=== PATIENT | female | born 1940 | race Caucasian/White ===

== ENCOUNTER 2017-02-10 11:07 | Emergency (ER) | payer OTHER, MEDICAID ==
[~2017-02-10 11:07] MED LIST: AMLODIPINE5 MG PO; APR10 PO; BUPROPION100 MG PO; CARL PO; COL100 PO; DIO160 PO; DIPHENHYDRAMINE25 M4 PO; FERROUS SULFATE65 MG PO; FLA500 PO; FLUTICASON0.05 MG/Ac; FOL1 PO; HYDROMORPHONE2 MG PO; IPRATROPIUM BROM3 ML HHN; LAC30L PO; MAG PO; METFORMIN ER500 M1 PO; METFORMIN500 MG PO; METOPROLOL100 MG PO; NITROFURANTOIN100 M1 PO; PAX20 PO; PHENAZOPYRIDIN100 M1 PO; PLA75 PO; PRE10 PO; PRI20 PO; ROB500 PO; TRAMADOL HCL50 M PO; VALSARTAN AND H1 TA1 PO; XAN25 PO; ZOFRAN4 M1 PO; [UNRECOGNIZED DRUG - CODE] PO
[2017-02-10 11:31] VITALS: BP 148/83
== END 2017-02-10 13:22 | disposition home or self-care (01) ==
LOC: ED 11:07
DX: N39.0 Urinary tract infection, site not specified (principal); I10 Essential (primary) hypertension; E11.9 Type 2 diabetes mellitus without complications; J45.901 Unspecified asthma with (acute) exacerbation; Z79.84 Long term (current) use of oral hypoglycemic drugs

== ENCOUNTER 2017-06-04 18:37 | Emergency (ER) | payer OTHER, MEDICAID ==
[2017-06-04 20:25] VITALS: BP 150/96
== END 2017-06-04 20:25 | disposition home or self-care (01) ==
LOC: ED 18:37
DX: S43.402A Unspecified sprain of left shoulder joint, initial encounter (principal); S09.90XA Unspecified injury of head, initial encounter; I10 Essential (primary) hypertension; E11.9 Type 2 diabetes mellitus without complications; Z79.84 Long term (current) use of oral hypoglycemic drugs; Z88.0 Allergy status to penicillin; W01.0XXA Fall on same level from slipping, tripping and stumbling without subsequent striking against object, initial encounter; Y93.89 Activity, other specified; Y92.89 Other specified places as the place of occurrence of the external cause; Y99.8 Other external cause status

== ENCOUNTER 2018-01-14 13:05 | Emergency (ER) | payer OTHER ==
[~2018-01-14] VITALS: Ht 147.3 cm; Wt 76.7 kg
[2018-01-14 13:07] VITALS: Ht 147.3 cm; Wt 76.7 kg
[2018-01-14 14:01] LABS: BASOPHIL % 0.2 % (0-2)
[2018-01-14 14:02] LABS: PLATELET COUNT 409 x10^3mcL (130-400); RED CELL DISTRIBUTION WIDTH 14.9 % (11.5-14.5)
[2018-01-14 14:15] LABS: CALCIUM 9.8 mg/dL (8.5-10.1); CARBON DIOXIDE 29.2 mmol/L (21-32); CHLORIDE SERUM 99 mmol/L (98-107); CREATININE SERUM 0.6 mg/dL (0.6-1.0); GLUCOSE SERUM 103 mg/dL (74-106); POTASSIUM SERUM 3.9 mmol/L (3.5-5.1); SODIUM SERUM 135 mmol/L (136-145)
[2018-01-14 14:19] LABS: ALBUMIN 3.4 g/dL (3.4-5.0); ALKALINE PHOSPHATASE 111 U/L (46-116); ALT/SGPT 27 U/L (14-59); AST/SGOT 15 U/L (15-37); BILIRUBIN TOTAL 0.2 mg/dL (0.20-1.00); TOTAL PROTEIN, SERUM 7.7 g/dL (6.4-8.2)
[2018-01-14 14:29] LABS: FREE T4 1.07 ng/dL (0.76-1.46); FREE THYROXINE INDEX 3.2 ug/dL (1.4-4.5); T4(THYROXINE) 9.1 ug/dL (4.7-13.3)
[2018-01-14 14:38] LABS: T3 TOTAL 1.16 ng/mL
[2018-01-14 15:06] VITALS: BP 137/72
== END 2018-01-14 15:11 | disposition home or self-care (01) ==
LOC: ED 13:05
PROVIDERS: Emergency Medicine
DX: R60.0 Localized edema (principal); R06.00 Dyspnea, unspecified; R06.01 Orthopnea; J45.909 Unspecified asthma, uncomplicated; I10 Essential (primary) hypertension; E11.9 Type 2 diabetes mellitus without complications; Z88.0 Allergy status to penicillin
CPT/HCPCS: 36415; 83880; 84439; Q0092

== ENCOUNTER 2018-03-03 09:05 | Inpatient (IN) | payer OTHER ==
[~2018-03-03] VITALS: Ht 147.3 cm; Wt 81.2 kg
[2018-03-03 10:25] LABS: BASOPHIL % 0.4 % (0-2)
[2018-03-03 10:27] LABS: PLATELET COUNT 501 x10^3mcL (130-400); RED CELL DISTRIBUTION WIDTH 14.9 % (11.5-14.5)
[2018-03-03 10:40] LABS: ALKALINE PHOSPHATASE 90 U/L (46-116); ALT/SGPT 29 U/L (14-59); AST/SGOT 20 U/L (15-37); BILIRUBIN TOTAL 0.31 mg/dL (0.20-1.00); CALCIUM 9.3 mg/dL (8.5-10.1); CARBON DIOXIDE 25.9 mmol/L (21-32); CHLORIDE SERUM 89 mmol/L (98-107); CHOLESTEROL 135 mg/dL (<200); CREATININE SERUM 0.7 mg/dL (0.6-1.0); GLUCOSE SERUM 168 mg/dL (74-106); HDL CHOLESTEROL 46 mg/dL (40-60); POTASSIUM SERUM 4.1 mmol/L (3.5-5.1); TOTAL PROTEIN, SERUM 6.8 g/dL (6.4-8.2)
[2018-03-03 10:52] LABS: ALBUMIN 2.7 g/dL (3.4-5.0); SODIUM SERUM 120 mmol/L (136-145)
[2018-03-03] MEDS ORDERED: METOPROLOL SUC100 M2 PO (12:30)
[2018-03-03] MEDS ORDERED: POTASSIUM CHLO10 MEQ PO (12:30)
[2018-03-03] MEDS ORDERED: METFORMIN HYDR500 M1 PO (12:31)
[2018-03-03] MEDS ORDERED: FUROSEMIDE40 MG PO (12:31)
[2018-03-03] MEDS ORDERED: GOOD SENSE OMEP20 MG PO (12:31)
[2018-03-03] MEDS ORDERED: HYDRALAZINE HCL25 MG PO (12:31)
[2018-03-03] MEDS ORDERED: AMLODIPINE BESY10 M2 PO (12:32)
[2018-03-03 15:28] VITALS: BP 160/68
[2018-03-03 15:33] VITALS: Ht 147.3 cm; Wt 81.2 kg
[2018-03-03] MEDS ORDERED: LOSARTAN POTAS100 M1 PO (16:16)
[2018-03-03 18:28] LABS: CREATININE UR 11.9 mg/dL
[2018-03-03 20:36] VITALS: BP 131/63
[2018-03-04 05:50] VITALS: BP 128/54
[2018-03-04 06:06] LABS: BASOPHIL % 0.3 % (0-2)
[2018-03-04 06:30] LABS: PLATELET COUNT 523 x10^3mcL (130-400); RED CELL DISTRIBUTION WIDTH 15.2 % (11.5-14.5)
[2018-03-04 06:39] LABS: ALBUMIN 2.9 g/dL (3.4-5.0); ALKALINE PHOSPHATASE 87 U/L (46-116); ALT/SGPT 27 U/L (14-59); AST/SGOT 15 U/L (15-37); BILIRUBIN TOTAL 0.24 mg/dL (0.20-1.00); CALCIUM 10.1 mg/dL (8.5-10.1); CARBON DIOXIDE 25.6 mmol/L (21-32); CHLORIDE SERUM 94 mmol/L (98-107); CREATININE SERUM 0.7 mg/dL (0.6-1.0); GLUCOSE SERUM 173 mg/dL (74-106); IRON 22 ug/dL (50-170); MAGNESIUM 1.6 mg/dL (1.8-2.4); POTASSIUM SERUM 3.8 mmol/L (3.5-5.1); SODIUM SERUM 128 mmol/L (136-145); TOTAL IRON BINDING CAPACITY 209 ug/dL (250-450); TOTAL PROTEIN, SERUM 7.4 g/dL (6.4-8.2); URIC ACID 5.5 mg/dL (2.6-6.0)
[2018-03-04 08:32] VITALS: BP 119/61
[2018-03-04 16:14] LABS: CALCIUM 8.5 mg/dL (8.5-10.1); CARBON DIOXIDE 27.8 mmol/L (21-32); CHLORIDE SERUM 98 mmol/L (98-107); CREATININE SERUM 0.8 mg/dL (0.6-1.0); GLUCOSE SERUM 203 mg/dL (74-106); POTASSIUM SERUM 3.6 mmol/L (3.5-5.1); SODIUM SERUM 134 mmol/L (136-145)
[2018-03-04 17:26] LABS: UA SPECIFIC GRAVITY 1.015 (1.005-1.035); microscopic required? YES; urine erythrocyte NEGATIVE (NEGATIVE)
[2018-03-04 17:30] VITALS: BP 140/64
[2018-03-04 20:48] VITALS: BP 136/56
[2018-03-05 05:10] VITALS: BP 140/64
[2018-03-05 05:58] LABS: BASOPHIL % 0.5 % (0-2)
[2018-03-05 06:09] LABS: PLATELET COUNT 561 x10^3mcL (130-400); RED CELL DISTRIBUTION WIDTH 15.5 % (11.5-14.5)
[2018-03-05 07:04] LABS: ALKALINE PHOSPHATASE 79 U/L (46-116); ALT/SGPT 20 U/L (14-59); AST/SGOT 19 U/L (15-37); BILIRUBIN TOTAL 0.1 mg/dL (0.20-1.00); CALCIUM 8.4 mg/dL (8.5-10.1); CHLORIDE SERUM 100 mmol/L (98-107); CREATININE SERUM 0.6 mg/dL (0.6-1.0); GLUCOSE SERUM 111 mg/dL (74-106); MAGNESIUM 2.1 mg/dL (1.8-2.4); PHOSPHOROUS 2.9 mg/dL (2.5-4.9); POTASSIUM SERUM 3.5 mmol/L (3.5-5.1); SODIUM SERUM 136 mmol/L (136-145); TOTAL PROTEIN, SERUM 6.5 g/dL (6.4-8.2)
[2018-03-05 07:10] LABS: ALBUMIN 2.6 g/dL (3.4-5.0)
[2018-03-05 10:04] LABS: microalbumin:creatinine ratio 99.4 (0.0-30.0)
[2018-03-05 12:39] VITALS: BP 140/64
[2018-03-05 12:45] VITALS: BP 140/64
[2018-03-05 15:41] VITALS: BP 140/64
== END 2018-03-05 16:34 | disposition home health service (06) | DRG 640 ==
LOC: ED 09:05 → MU 14:40
PROVIDERS: Emergency Medicine; Internal Medicine Nephrology; Internal Medicine Pulmonary Disease
DX: E87.1 Hypo-osmolality and hyponatremia (principal); J96.01 Acute respiratory failure with hypoxia; E83.42 Hypomagnesemia; I10 Essential (primary) hypertension; J45.909 Unspecified asthma, uncomplicated; D64.9 Anemia, unspecified; E88.09 Other disorders of plasma-protein metabolism, not elsewhere classified; M06.9 Rheumatoid arthritis, unspecified; Z68.37 Body mass index [BMI] 37.0-37.9, adult; Z79.84 Long term (current) use of oral hypoglycemic drugs
CPT/HCPCS: 83880; J0696; J1644; J1940; J2270; J2405; J2916; J2930; J3475; J3490; J7040; Q0092; Q9967

== ENCOUNTER 2019-05-19 12:08 | Emergency (ER) | payer OTHER ==
[~2019-05-19] VITALS: Ht 137.2 cm; Wt 77.6 kg
[~2019-05-19 12:08] MED LIST changes: +AMLODIPINE BESY10 M2 PO; +FUROSEMIDE40 MG PO; +GOOD SENSE OMEP20 MG PO; +HYDRALAZINE HCL25 MG PO; +LOSARTAN POTAS100 M1 PO; +METFORMIN HYDR500 M1 PO; +METOPROLOL SUC100 M2 PO; +POTASSIUM CHLO10 MEQ PO
[2019-05-19 12:13] VITALS: Ht 137.2 cm; Wt 77.6 kg
[2019-05-19 13:02] LABS: BASOPHIL % 0.7 % (0-2)
[2019-05-19 13:05] LABS: PLATELET COUNT 403 x10^3mcL (130-400); RED CELL DISTRIBUTION WIDTH 15.3 % (11.5-14.5)
[2019-05-19 13:24] LABS: CALCIUM 9.6 mg/dL (8.5-10.1); CARBON DIOXIDE 28.6 mmol/L (21-32); CHLORIDE SERUM 100 mmol/L (98-107); CREATININE SERUM 0.7 mg/dL (0.6-1.0); GLUCOSE SERUM 126 mg/dL (74-106); POTASSIUM SERUM 4.1 mmol/L (3.5-5.1); SODIUM SERUM 136 mmol/L (136-145)
[2019-05-19 13:29] LABS: ALBUMIN 3.3 g/dL (3.4-5.0); ALKALINE PHOSPHATASE 136 U/L (46-116); ALT/SGPT 28 U/L (14-59); AST/SGOT 14 U/L (15-37); BILIRUBIN TOTAL 0.2 mg/dL (0.20-1.00); TOTAL PROTEIN, SERUM 7.2 g/dL (6.4-8.2)
[2019-05-19] MEDS ORDERED: METOPROLOL TAR100 MG PO (14:16)
[2019-05-19 16:09] VITALS: BP 137/79
== END 2019-05-19 16:09 | disposition home or self-care (01) ==
LOC: ED 12:08
PROVIDERS: Emergency Medicine
DX: R20.2 Paresthesia of skin (principal); R60.0 Localized edema; R51 Headache; I10 Essential (primary) hypertension; J45.909 Unspecified asthma, uncomplicated; E11.9 Type 2 diabetes mellitus without complications; M19.90 Unspecified osteoarthritis, unspecified site; Z88.0 Allergy status to penicillin
CPT/HCPCS: 36415; 82962; 83880; Q0092

== ENCOUNTER 2019-05-20 21:52 | Inpatient (IN) | payer OTHER ==
[~2019-05-20] VITALS: Ht 142.2 cm; Wt 71.4 kg
[~2019-05-20 21:52] MED LIST changes: +METOPROLOL TAR100 MG PO
[2019-05-20 23:47] LABS: BASOPHIL % 1.1 % (0-2)
[2019-05-20 23:50] LABS: PLATELET COUNT 411 x10^3mcL (130-400); RED CELL DISTRIBUTION WIDTH 15.1 % (11.5-14.5)
[2019-05-21 00:04] LABS: CALCIUM 10.2 mg/dL (8.5-10.1); CARBON DIOXIDE 26.8 mmol/L (21-32); CHLORIDE SERUM 99 mmol/L (98-107); CREATININE SERUM 0.7 mg/dL (0.6-1.0); GLUCOSE SERUM 149 mg/dL (74-106); POTASSIUM SERUM 4.4 mmol/L (3.5-5.1); SODIUM SERUM 136 mmol/L (136-145)
[2019-05-21 00:09] LABS: ALBUMIN 3.4 g/dL (3.4-5.0); ALKALINE PHOSPHATASE 146 U/L (46-116); ALT/SGPT 27 U/L (14-59); AST/SGOT 14 U/L (15-37); BILIRUBIN TOTAL 0.2 mg/dL (0.20-1.00); TOTAL PROTEIN, SERUM 6.7 g/dL (6.4-8.2)
[2019-05-21 01:33] LABS: microscopic required? YES; urine erythrocyte NEGATIVE (NEGATIVE)
[2019-05-21 04:23] VITALS: BP 152/66
[2019-05-21 08:31] VITALS: BP 152/67
[2019-05-21 17:00] VITALS: BP 148/76
[2019-05-21 21:01] VITALS: BP 137/55
[2019-05-22 05:13] VITALS: BP 145/65
[2019-05-22 06:30] LABS: BASOPHIL % 0.7 % (0-2); PLATELET COUNT 341 x10^3mcL (130-400)
[2019-05-22 06:49] LABS: CALCIUM 8.3 mg/dL (8.5-10.1); CARBON DIOXIDE 26.3 mmol/L (21-32); CHLORIDE SERUM 95 mmol/L (98-107); CREATININE SERUM 0.5 mg/dL (0.6-1.0); GLUCOSE SERUM 112 mg/dL (74-106); POTASSIUM SERUM 3.3 mmol/L (3.5-5.1); SODIUM SERUM 131 mmol/L (136-145)
[2019-05-22 07:45] LABS: RED CELL DISTRIBUTION WIDTH 15.7 % (11.5-14.5)
[2019-05-22 08:26] VITALS: BP 149/69
[2019-05-22 12:38] VITALS: BP 104/32
[2019-05-22 16:40] VITALS: BP 120/63
[2019-05-22 20:13] VITALS: BP 151/56
[2019-05-23 04:59] VITALS: BP 137/62
[2019-05-23 06:10] LABS: BASOPHIL % 0.4 % (0-2); PLATELET COUNT 332 x10^3mcL (130-400)
[2019-05-23 06:12] LABS: RED CELL DISTRIBUTION WIDTH 15.1 % (11.5-14.5)
[2019-05-23 06:27] LABS: CALCIUM 8.8 mg/dL (8.5-10.1); CARBON DIOXIDE 23.1 mmol/L (21-32); CHLORIDE SERUM 92 mmol/L (98-107); CREATININE SERUM 0.5 mg/dL (0.6-1.0); GLUCOSE SERUM 114 mg/dL (74-106); MAGNESIUM 1.3 mg/dL (1.8-2.4); POTASSIUM SERUM 3.4 mmol/L (3.5-5.1); SODIUM SERUM 127 mmol/L (136-145)
[2019-05-23 06:51] LABS: FREE T4 1.81 ng/dL (0.76-1.46)
[2019-05-23 07:58] VITALS: BP 114/72
[2019-05-23 11:49] VITALS: BP 121/70
[2019-05-23 16:36] VITALS: BP 106/44
[2019-05-23 19:15] VITALS: BP 127/55
[2019-05-24 05:09] VITALS: BP 148/64
[2019-05-24 06:19] LABS: BASOPHIL % 0.9 % (0-2); PLATELET COUNT 316 x10^3mcL (130-400)
[2019-05-24 06:34] LABS: CALCIUM 8.9 mg/dL (8.5-10.1); CARBON DIOXIDE 22.3 mmol/L (21-32); CHLORIDE SERUM 96 mmol/L (98-107); CREATININE SERUM 0.4 mg/dL (0.6-1.0); GLUCOSE SERUM 121 mg/dL (74-106); MAGNESIUM 2.1 mg/dL (1.8-2.4); POTASSIUM SERUM 3.6 mmol/L (3.5-5.1); SODIUM SERUM 130 mmol/L (136-145)
[2019-05-24 06:55] LABS: RED CELL DISTRIBUTION WIDTH 15.2 % (11.5-14.5)
[2019-05-24 09:03] VITALS: BP 147/63
[2019-05-24 11:49] VITALS: BP 116/53
[2019-05-24 16:35] VITALS: BP 114/64
[2019-05-24 21:04] VITALS: BP 138/59
[2019-05-25 05:58] VITALS: BP 133/63
[2019-05-25 06:26] LABS: CALCIUM 8.8 mg/dL (8.5-10.1); CARBON DIOXIDE 25.9 mmol/L (21-32); CHLORIDE SERUM 95 mmol/L (98-107); CREATININE SERUM 0.4 mg/dL (0.6-1.0); GLUCOSE SERUM 122 mg/dL (74-106); MAGNESIUM 1.5 mg/dL (1.8-2.4); POTASSIUM SERUM 3.4 mmol/L (3.5-5.1); SODIUM SERUM 130 mmol/L (136-145)
[2019-05-25 06:53] LABS: BASOPHIL % 0.5 % (0-2); PLATELET COUNT 331 x10^3mcL (130-400)
[2019-05-25 06:54] LABS: RED CELL DISTRIBUTION WIDTH 15.3 % (11.5-14.5)
[2019-05-25 08:53] VITALS: BP 112/55
[2019-05-26 06:12] VITALS: BP 140/56
[2019-05-26 06:43] LABS: BASOPHIL % 0.4 % (0-2)
[2019-05-26 06:48] LABS: CARBON DIOXIDE 25.3 mmol/L (21-32); CHLORIDE SERUM 96 mmol/L (98-107); CREATININE SERUM 0.5 mg/dL (0.6-1.0); GLUCOSE SERUM 151 mg/dL (74-106); MAGNESIUM 1.8 mg/dL (1.8-2.4); POTASSIUM SERUM 3.4 mmol/L (3.5-5.1); SODIUM SERUM 131 mmol/L (136-145)
[2019-05-26 07:02] LABS: PLATELET COUNT 411 x10^3mcL (130-400); RED CELL DISTRIBUTION WIDTH 15.2 % (11.5-14.5)
[2019-05-26 07:49] VITALS: BP 139/59
[2019-05-26 08:23] VITALS: BP 128/47
[2019-05-26 12:04] VITALS: BP 111/49
[2019-05-26 18:28] VITALS: BP 118/41
[2019-05-27 04:52] VITALS: BP 122/65
[2019-05-27 06:50] LABS: BASOPHIL % 0.3 % (0-2); PLATELET COUNT 371 x10^3mcL (130-400)
[2019-05-27 07:31] LABS: CALCIUM 9.2 mg/dL (8.5-10.1); CHLORIDE SERUM 96 mmol/L (98-107); CREATININE SERUM 0.5 mg/dL (0.6-1.0); GLUCOSE SERUM 135 mg/dL (74-106); MAGNESIUM 1.7 mg/dL (1.8-2.4); POTASSIUM SERUM 3.4 mmol/L (3.5-5.1); SODIUM SERUM 132 mmol/L (136-145)
[2019-05-27 08:16] LABS: RED CELL DISTRIBUTION WIDTH 15.5 % (11.5-14.5)
[2019-05-27 08:31] VITALS: BP 135/57
[2019-05-27 12:05] VITALS: BP 116/37
[2019-05-27 16:51] VITALS: BP 137/70
[2019-05-27 19:17] LABS: TOTAL PROTEIN CSF 244.4 mg/dL (15-45)
[2019-05-27 20:28] VITALS: BP 135/63
[2019-05-27 22:17] LABS: COLOR CSF RED
[2019-05-27 22:18] LABS: APPEARANCE CSF BLOODY
[2019-05-27 22:19] LABS: COLOR CSF RED; RBC CSF 70140 /cumm (0); WBC CSF 1 /cumm (0-5)
[2019-05-27 22:20] LABS: APPEARANCE CSF BLOODY; RBC CSF 47640 /cumm (0); WBC CSF 9 /cumm (0-5)
[2019-05-28 04:46] VITALS: BP 141/62
[2019-05-28 06:14] LABS: BASOPHIL % 0.4 % (0-2)
[2019-05-28 06:22] LABS: ALKALINE PHOSPHATASE 77 U/L (46-116); ALT/SGPT 21 U/L (14-59); AST/SGOT 16 U/L (15-37); BILIRUBIN TOTAL 0.44 mg/dL (0.20-1.00); CALCIUM 9.3 mg/dL (8.5-10.1); CARBON DIOXIDE 27.9 mmol/L (21-32); CHLORIDE SERUM 98 mmol/L (98-107); CREATININE SERUM 0.5 mg/dL (0.6-1.0); GLUCOSE SERUM 127 mg/dL (74-106); MAGNESIUM 1.6 mg/dL (1.8-2.4); POTASSIUM SERUM 3.5 mmol/L (3.5-5.1); SODIUM SERUM 134 mmol/L (136-145); TOTAL PROTEIN, SERUM 6.5 g/dL (6.4-8.2)
[2019-05-28 06:23] LABS: ALBUMIN 2.4 g/dL (3.4-5.0)
[2019-05-28 07:28] VITALS: BP 120/57
[2019-05-28 07:30] LABS: PLATELET COUNT 403 x10^3mcL (130-400); RED CELL DISTRIBUTION WIDTH 15.5 % (11.5-14.5)
[2019-05-28 11:35] VITALS: BP 110/43
[2019-05-28 17:47] VITALS: BP 126/48
[2019-05-28 20:04] VITALS: BP 137/56
[2019-05-29 04:48] VITALS: BP 125/58
[2019-05-29 08:46] VITALS: BP 148/63
[2019-05-29 09:20] LABS: BASOPHIL % 0.3 % (0-2)
[2019-05-29 09:29] LABS: RED CELL DISTRIBUTION WIDTH 14.8 % (11.5-14.5)
[2019-05-29 09:30] LABS: PLATELET COUNT 464 x10^3mcL (130-400)
[2019-05-29 10:06] LABS: ALKALINE PHOSPHATASE 76 U/L (46-116); ALT/SGPT 22 U/L (14-59); AST/SGOT 13 U/L (15-37); BILIRUBIN TOTAL 0.6 mg/dL (0.20-1.00); CALCIUM 9.2 mg/dL (8.5-10.1); CARBON DIOXIDE 31.7 mmol/L (21-32); CHLORIDE SERUM 93 mmol/L (98-107); CREATININE SERUM 0.6 mg/dL (0.6-1.0); GLUCOSE SERUM 147 mg/dL (74-106); SODIUM SERUM 132 mmol/L (136-145); TOTAL PROTEIN, SERUM 6.5 g/dL (6.4-8.2)
[2019-05-29 10:14] LABS: ALBUMIN 2.4 g/dL (3.4-5.0)
[2019-05-29 10:19] LABS: POTASSIUM SERUM 2.9 mmol/L (3.5-5.1)
[2019-05-29 11:35] VITALS: BP 123/44
[2019-05-29 16:50] LABS: microscopic required? YES; urine erythrocyte TRACE (NEGATIVE)
[2019-05-29 16:57] VITALS: BP 123/57
[2019-05-29 21:28] VITALS: BP 144/61
[2019-05-30 05:02] VITALS: BP 144/52
[2019-05-30 06:20] LABS: BASOPHIL % 0.4 % (0-2)
[2019-05-30 06:37] LABS: RED CELL DISTRIBUTION WIDTH 14.9 % (11.5-14.5)
[2019-05-30 08:10] VITALS: BP 132/66
[2019-05-30 09:37] LABS: PLATELET COUNT 503 x10^3mcL (130-400)
[2019-05-30 11:39] VITALS: BP 140/57
[2019-05-30 15:40] VITALS: BP 141/70
[2019-05-30 16:07] VITALS: BP 140/57
[2019-05-30 20:55] VITALS: BP 145/58
[2019-05-31 06:00] VITALS: BP 153/83
[2019-05-31 07:15] LABS: ALKALINE PHOSPHATASE 79 U/L (46-116); ALT/SGPT 16 U/L (14-59); AST/SGOT 18 U/L (15-37); BILIRUBIN TOTAL 0.4 mg/dL (0.20-1.00); CALCIUM 9.2 mg/dL (8.5-10.1); CARBON DIOXIDE 30.6 mmol/L (21-32); CHLORIDE SERUM 91 mmol/L (98-107); CREATININE SERUM 1.5 mg/dL (0.6-1.0); GLUCOSE SERUM 154 mg/dL (74-106); MAGNESIUM 1.5 mg/dL (1.8-2.4); SODIUM SERUM 131 mmol/L (136-145); TOTAL PROTEIN, SERUM 6.9 g/dL (6.4-8.2)
[2019-05-31 07:17] LABS: ALBUMIN 2.3 g/dL (3.4-5.0)
[2019-05-31 08:30] LABS: BASOPHIL % 2.1 % (0-2)
[2019-05-31 09:02] VITALS: BP 158/69
[2019-05-31 09:20] LABS: PLATELET COUNT 526 x10^3mcL (130-400)
[2019-05-31 13:35] VITALS: BP 140/64
[2019-05-31 17:21] VITALS: BP 135/63
[2019-05-31 19:18] VITALS: BP 150/81
[2019-05-31 23:10] VITALS: BP 114/60
[2019-06-01 03:10] VITALS: BP 139/83
[2019-06-01 05:16] LABS: BASOPHIL % 0.7 % (0-2)
[2019-06-01 05:21] LABS: PLATELET COUNT 553 x10^3mcL (130-400)
[2019-06-01 05:25] LABS: ALKALINE PHOSPHATASE 81 U/L (46-116); ALT/SGPT 14 U/L (14-59); AST/SGOT 15 U/L (15-37); BILIRUBIN TOTAL 0.38 mg/dL (0.20-1.00); CALCIUM 9.7 mg/dL (8.5-10.1); CARBON DIOXIDE 31.9 mmol/L (21-32); CHLORIDE SERUM 89 mmol/L (98-107); CREATININE SERUM 2.7 mg/dL (0.6-1.0); GLUCOSE SERUM 206 mg/dL (74-106); POTASSIUM SERUM 3.4 mmol/L (3.5-5.1); SODIUM SERUM 129 mmol/L (136-145); TOTAL PROTEIN, SERUM 6.6 g/dL (6.4-8.2)
[2019-06-01 05:26] LABS: ALBUMIN 2.3 g/dL (3.4-5.0)
[2019-06-01 07:27] VITALS: BP 107/58
[2019-06-01 11:30] VITALS: BP 102/42
[2019-06-01 15:31] VITALS: BP 115/78
[2019-06-01 17:39] LABS: CALCIUM 9.1 mg/dL (8.5-10.1); CHLORIDE SERUM 91 mmol/L (98-107); CREATININE SERUM 3.2 mg/dL (0.6-1.0); GLUCOSE SERUM 152 mg/dL (74-106); POTASSIUM SERUM 3.3 mmol/L (3.5-5.1); SODIUM SERUM 129 mmol/L (136-145)
[2019-06-01 20:05] VITALS: BP 106/49
[2019-06-01 23:44] VITALS: BP 114/49
[2019-06-02] VITALS (7 sets, daily range): BP systolic 116–144; BP diastolic 47–58
[2019-06-02 05:25] LABS: BASOPHIL % 0.2 % (0-2)
[2019-06-02 05:28] LABS: RED CELL DISTRIBUTION WIDTH 15.4 % (11.5-14.5)
[2019-06-02 05:57] LABS: ALBUMIN 2.1 g/dL (3.4-5.0); ALKALINE PHOSPHATASE 77 U/L (46-116); ALT/SGPT 11 U/L (14-59); AST/SGOT 13 U/L (15-37); BILIRUBIN TOTAL 0.35 mg/dL (0.20-1.00); CARBON DIOXIDE 30.4 mmol/L (21-32); CHLORIDE SERUM 93 mmol/L (98-107); CREATININE SERUM 3.4 mg/dL (0.6-1.0); GLUCOSE SERUM 129 mg/dL (74-106); MAGNESIUM 2.2 mg/dL (1.8-2.4); POTASSIUM SERUM 3.4 mmol/L (3.5-5.1); SODIUM SERUM 132 mmol/L (136-145); TOTAL PROTEIN, SERUM 6.3 g/dL (6.4-8.2)
[2019-06-02 08:12] LABS: PLATELET COUNT 568 x10^3mcL (130-400)
[2019-06-03 03:11] VITALS: BP 133/76
[2019-06-03 05:00] LABS: BASOPHIL % 0.5 % (0-2)
[2019-06-03 05:08] LABS: PLATELET COUNT 634 x10^3mcL (130-400); RED CELL DISTRIBUTION WIDTH 15.3 % (11.5-14.5)
[2019-06-03 05:24] LABS: ALKALINE PHOSPHATASE 86 U/L (46-116); ALT/SGPT 12 U/L (14-59); AST/SGOT 13 U/L (15-37); BILIRUBIN TOTAL 0.25 mg/dL (0.20-1.00); CALCIUM 9.2 mg/dL (8.5-10.1); CARBON DIOXIDE 28.1 mmol/L (21-32); CHLORIDE SERUM 97 mmol/L (98-107); CREATININE SERUM 3.3 mg/dL (0.6-1.0); GLUCOSE SERUM 146 mg/dL (74-106); MAGNESIUM 2.2 mg/dL (1.8-2.4); POTASSIUM SERUM 4.1 mmol/L (3.5-5.1); SODIUM SERUM 135 mmol/L (136-145); TOTAL PROTEIN, SERUM 6.5 g/dL (6.4-8.2)
[2019-06-03 05:27] LABS: ALBUMIN 2.2 g/dL (3.4-5.0)
[2019-06-03 08:05] VITALS: BP 133/56
[2019-06-03 12:07] VITALS: BP 145/52
[2019-06-03 16:32] VITALS: BP 122/47
[2019-06-03 19:20] VITALS: BP 137/49
[2019-06-03 23:39] VITALS: BP 103/43
[2019-06-04] VITALS (11 sets, daily range): BP systolic 82–145; BP diastolic 30–60
[2019-06-04 05:29] LABS: PLATELET COUNT 604 x10^3mcL (130-400); RED CELL DISTRIBUTION WIDTH 15.5 % (11.5-14.5)
[2019-06-04 05:40] LABS: ALBUMIN 2.1 g/dL (3.4-5.0); ALKALINE PHOSPHATASE 95 U/L (46-116); ALT/SGPT 11 U/L (14-59); AST/SGOT 19 U/L (15-37); BILIRUBIN TOTAL 0.2 mg/dL (0.20-1.00); CALCIUM 8.9 mg/dL (8.5-10.1); CARBON DIOXIDE 31.9 mmol/L (21-32); CHLORIDE SERUM 103 mmol/L (98-107); CREATININE SERUM 3.1 mg/dL (0.6-1.0); GLUCOSE SERUM 144 mg/dL (74-106); MAGNESIUM 1.9 mg/dL (1.8-2.4); POTASSIUM SERUM 4.3 mmol/L (3.5-5.1); SODIUM SERUM 139 mmol/L (136-145); TOTAL PROTEIN, SERUM 6.2 g/dL (6.4-8.2)
[2019-06-04 06:02] LABS: BAND NEUTROPHIL 3 % (0-10); METAMYELOCTE 1 % (0-2); MONOCYTE 6 % (0-7); SEGMENTED NEUTROPHILS 68 % (37-75); rbc morphology (normal/abnorm) ABNORMAL (NORMAL)
[2019-06-04 06:03] LABS: PLATELET MORPHOLOGY PLATELETS INCREASED
[2019-06-05] VITALS (17 sets, daily range): BP systolic 106–133; BP diastolic 40–61
[2019-06-05 05:23] LABS: CALCIUM 9.4 mg/dL (8.5-10.1); CARBON DIOXIDE 29.9 mmol/L (21-32); CHLORIDE SERUM 106 mmol/L (98-107); CREATININE SERUM 2.7 mg/dL (0.6-1.0); GLUCOSE SERUM 151 mg/dL (74-106); MAGNESIUM 1.7 mg/dL (1.8-2.4); PHOSPHOROUS 2.8 mg/dL (2.5-4.9); POTASSIUM SERUM 4.3 mmol/L (3.5-5.1); SODIUM SERUM 143 mmol/L (136-145)
[2019-06-06] VITALS (10 sets, daily range): BP systolic 112–150; BP diastolic 39–64; Ht 142.2 cm; Wt 71.4 kg
[2019-06-06 05:54] LABS: BASOPHIL % 0.6 % (0-2)
[2019-06-06 05:56] LABS: RED CELL DISTRIBUTION WIDTH 15.4 % (11.5-14.5)
[2019-06-06 05:57] LABS: PLATELET COUNT 665 x10^3mcL (130-400)
[2019-06-06 05:59] LABS: CALCIUM 9.8 mg/dL (8.5-10.1); CARBON DIOXIDE 32.5 mmol/L (21-32); CHLORIDE SERUM 106 mmol/L (98-107); CREATININE SERUM 2.3 mg/dL (0.6-1.0); GLUCOSE SERUM 146 mg/dL (74-106); POTASSIUM SERUM 3.9 mmol/L (3.5-5.1); SODIUM SERUM 146 mmol/L (136-145)
[2019-06-07 01:23] VITALS: BP 114/62
[2019-06-07 04:22] VITALS: BP 128/58
[2019-06-07 05:13] LABS: CALCIUM 9.7 mg/dL (8.5-10.1); CARBON DIOXIDE 34.5 mmol/L (21-32); CHLORIDE SERUM 102 mmol/L (98-107); CREATININE SERUM 1.8 mg/dL (0.6-1.0); GLUCOSE SERUM 159 mg/dL (74-106); SODIUM SERUM 145 mmol/L (136-145)
[2019-06-07 05:20] LABS: BASOPHIL % 0.6 % (0-2)
[2019-06-07 05:36] LABS: PLATELET COUNT 660 x10^3mcL (130-400); RED CELL DISTRIBUTION WIDTH 15.4 % (11.5-14.5)
[2019-06-07 07:33] VITALS: BP 137/57
[2019-06-07 12:24] VITALS: BP 114/54
[2019-06-07 15:05] VITALS: BP 126/53
[2019-06-07 16:20] LABS: CALCIUM 9.8 mg/dL (8.5-10.1); CARBON DIOXIDE 34.4 mmol/L (21-32); CHLORIDE SERUM 103 mmol/L (98-107); CREATININE SERUM 1.6 mg/dL (0.6-1.0); GLUCOSE SERUM 134 mg/dL (74-106); POTASSIUM SERUM 3.6 mmol/L (3.5-5.1); SODIUM SERUM 145 mmol/L (136-145)
[2019-06-07 21:02] VITALS: BP 137/60
[2019-06-08 05:40] VITALS: BP 105/50
[2019-06-08 09:10] VITALS: BP 135/55
[2019-06-08 10:11] LABS: CARBON DIOXIDE 33.6 mmol/L (21-32); CHLORIDE SERUM 103 mmol/L (98-107); CREATININE SERUM 1.4 mg/dL (0.6-1.0); GLUCOSE SERUM 150 mg/dL (74-106); POTASSIUM SERUM 3.5 mmol/L (3.5-5.1); SODIUM SERUM 145 mmol/L (136-145)
[2019-06-08 13:40] VITALS: BP 128/62
[2019-06-08 17:21] VITALS: BP 125/50
[2019-06-08 20:14] VITALS: BP 110/40
[2019-06-09 04:58] VITALS: BP 156/55
[2019-06-09 07:16] VITALS: BP 129/63
[2019-06-09 08:10] LABS: CALCIUM 9.3 mg/dL (8.5-10.1); CARBON DIOXIDE 32.6 mmol/L (21-32); CHLORIDE SERUM 103 mmol/L (98-107); CREATININE SERUM 1.1 mg/dL (0.6-1.0); GLUCOSE SERUM 143 mg/dL (74-106); SODIUM SERUM 143 mmol/L (136-145)
[2019-06-09 08:22] LABS: POTASSIUM SERUM 2.9 mmol/L (3.5-5.1)
[2019-06-09 11:24] LABS: RED CELL DISTRIBUTION WIDTH 14.6 % (11.5-14.5)
[2019-06-09 12:22] VITALS: BP 114/58
[2019-06-09 14:44] LABS: BAND NEUTROPHIL 0 % (0-10); BASOPHIL 0 % (0-2); MONOCYTE 10 % (0-7); SEGMENTED NEUTROPHILS 76 % (37-75); rbc morphology (normal/abnorm) ABNORMAL (NORMAL)
[2019-06-09 14:46] LABS: PLATELET COUNT 607 x10^3mcL (130-400)
[2019-06-09 14:56] LABS: PLATELET MORPHOLOGY PLATELETS DECREASED
[2019-06-09 16:44] VITALS: BP 124/61
[2019-06-09 17:15] LABS: CALCIUM 9.1 mg/dL (8.5-10.1); CARBON DIOXIDE 33.8 mmol/L (21-32); CHLORIDE SERUM 102 mmol/L (98-107); CREATININE SERUM 1.1 mg/dL (0.6-1.0); GLUCOSE SERUM 123 mg/dL (74-106); POTASSIUM SERUM 3.3 mmol/L (3.5-5.1); SODIUM SERUM 144 mmol/L (136-145)
[2019-06-09 20:10] VITALS: BP 155/61
[2019-06-10 05:04] VITALS: BP 115/63
[2019-06-10 08:01] VITALS: BP 143/59
[2019-06-10 11:42] VITALS: BP 126/57
[2019-06-10 16:08] VITALS: BP 139/53
[2019-06-10 16:09] VITALS: BP 113/78
[2019-06-10 19:30] VITALS: BP 124/57
[2019-06-11 05:06] VITALS: BP 137/59
[2019-06-11 06:37] LABS: CALCIUM 9.3 mg/dL (8.5-10.1); CHLORIDE SERUM 101 mmol/L (98-107); CREATININE SERUM 0.9 mg/dL (0.6-1.0); GLUCOSE SERUM 124 mg/dL (74-106); POTASSIUM SERUM 3.5 mmol/L (3.5-5.1); SODIUM SERUM 142 mmol/L (136-145)
[2019-06-11 06:52] LABS: MAGNESIUM 0.8 mg/dL (1.8-2.4)
[2019-06-11 07:07] LABS: RED CELL DISTRIBUTION WIDTH 14.4 % (11.5-14.5)
[2019-06-11 07:10] LABS: PLATELET COUNT 514 x10^3mcL (130-400)
[2019-06-11 08:09] VITALS: BP 135/64
[2019-06-11 12:06] VITALS: BP 127/60
[2019-06-11 13:16] LABS: ATYPICAL LYMPH 2 %; BAND NEUTROPHIL 9 % (0-10); MONOCYTE 8 % (0-7); MYELOCYTE 1 % (0-2)
[2019-06-11 13:17] LABS: SEGMENTED NEUTROPHILS 56 % (37-75)
[2019-06-11 13:18] LABS: PLATELET MORPHOLOGY PLATELETS INCREASED; rbc morphology (normal/abnorm) NORMAL (NORMAL)
[2019-06-11 17:00] VITALS: BP 140/77
[2019-06-11 20:42] VITALS: BP 140/55
[2019-06-12 05:39] VITALS: BP 123/55
[2019-06-12 08:15] VITALS: BP 146/63
[2019-06-12 10:48] VITALS: BP 142/70
[2019-06-12 17:42] VITALS: BP 126/58
[2019-06-12 20:44] VITALS: BP 125/57
[2019-06-13 05:00] VITALS: BP 126/54
[2019-06-13 06:50] LABS: CALCIUM 9.1 mg/dL (8.5-10.1); CARBON DIOXIDE 32.4 mmol/L (21-32); CHLORIDE SERUM 99 mmol/L (98-107); CREATININE SERUM 0.8 mg/dL (0.6-1.0); GLUCOSE SERUM 117 mg/dL (74-106); POTASSIUM SERUM 3.1 mmol/L (3.5-5.1); SODIUM SERUM 138 mmol/L (136-145)
[2019-06-13 08:14] VITALS: BP 126/63
[2019-06-13 11:52] VITALS: BP 109/66
[2019-06-13 16:45] VITALS: BP 146/60
[2019-06-13 20:32] VITALS: BP 146/52
[2019-06-14 05:13] VITALS: BP 155/48
[2019-06-14 06:25] LABS: BASOPHIL % 0.3 % (0-2)
[2019-06-14 06:39] LABS: PLATELET COUNT 483 x10^3mcL (130-400); RED CELL DISTRIBUTION WIDTH 15.2 % (11.5-14.5)
[2019-06-14 06:56] LABS: CALCIUM 9.1 mg/dL (8.5-10.1); CARBON DIOXIDE 31.1 mmol/L (21-32); CHLORIDE SERUM 100 mmol/L (98-107); CREATININE SERUM 0.7 mg/dL (0.6-1.0); GLUCOSE SERUM 112 mg/dL (74-106); POTASSIUM SERUM 3.4 mmol/L (3.5-5.1); SODIUM SERUM 138 mmol/L (136-145)
[2019-06-14 08:25] VITALS: BP 139/74
[2019-06-14 10:50] VITALS: BP 139/74
[2019-06-14 12:42] VITALS: BP 107/57
[2019-06-14] MEDS ORDERED: KLOR-CON M2020 MEQ PO (16:00)
[2019-06-14] MEDS ORDERED: COLACE100 MG PO (16:02)
[2019-06-14] MEDS ORDERED: XOPENEX1.25 MG/3 NEB (16:02)
[2019-06-14] MEDS ORDERED: APAP500 MG PO (16:03)
[2019-06-14] MEDS ORDERED: [UNRECOGNIZED DRUG - OTHER] MC (16:03)
[2019-06-14] MEDS ORDERED: INSR SC (16:07)
[2019-06-14 17:38] VITALS: BP 136/48
== END 2019-06-14 20:44 | DRG 871 ==
LOC: ED 21:52 → IC 05-21 02:46 → ED 05-21 02:46 → MU 05-21 02:46 → DU 05-21 02:46 → MU 05-21 04:12 → DU 05-22 01:59 → IC 05-31 22:10 → DU 06-07 14:40
PROVIDERS: Emergency Medicine; Internal Medicine; Internal Medicine Infectious Disease; Internal Medicine Nephrology; Internal Medicine Pulmonary Disease; Radiology Diagnostic Radiology; ADMIT Internal Medicine Pulmonary Disease
PROC: 0BH17EZ Insertion of Endotracheal Airway into Trachea, Via Natural or Artificial Opening (ICD-10-PCS; principal; 2019-06-04)
PROC: 5A1945Z Respiratory Ventilation, 24-96 Consecutive Hours (ICD-10-PCS; 2019-06-04)
DX: A41.9 Sepsis, unspecified organism (principal); A92.31 West Nile virus infection with encephalitis; G93.41 Metabolic encephalopathy; J96.02 Acute respiratory failure with hypercapnia; N17.0 Acute kidney failure with tubular necrosis; J18.9 Pneumonia, unspecified organism; J69.0 Pneumonitis due to inhalation of food and vomit; N39.0 Urinary tract infection, site not specified; E87.1 Hypo-osmolality and hyponatremia; R65.20 Severe sepsis without septic shock; J45.909 Unspecified asthma, uncomplicated; R22.1 Localized swelling, mass and lump, neck; R54 Age-related physical debility; E86.9 Volume depletion, unspecified; R13.10 Dysphagia, unspecified; E87.6 Hypokalemia; I10 Essential (primary) hypertension; M81.0 Age-related osteoporosis without current pathological fracture; E11.9 Type 2 diabetes mellitus without complications; I95.9 Hypotension, unspecified; M06.9 Rheumatoid arthritis, unspecified; Z88.0 Allergy status to penicillin; Z68.35 Body mass index [BMI] 35.0-35.9, adult
CPT/HCPCS: 36600; 62272; 82962; 83880; 84439; 86694; 86788; 86789; 90658; 92526-GN; 92610-GN; 94150; 97110-GP; 97112-GP; 97116-GP; 97164; 97530-GP; A4628; C9113; G0378; G0480; J0133; J0696; J1200; J1630; J1644; J1815; J1885; J1940; J1956; J2001; J2060; J2185; J2270; J2704; J3010; J3370; J3475; J3480; J7030; J7050; J7060; J7070; Q0092

== ENCOUNTER 2020-07-03 18:37 | Emergency (ER) | payer OTHER ==
[~2020-07-03] VITALS: Ht 137.2 cm; Wt 79.4 kg
[~2020-07-03 18:37] MED LIST changes: +APAP500 MG PO; +COLACE100 MG PO; +INSR SC; +KLOR-CON M2020 MEQ PO; +XOPENEX1.25 MG/3 NEB; +[UNRECOGNIZED DRUG - OTHER] MC
[2020-07-03 18:47] VITALS: Ht 137.2 cm; Wt 79.4 kg
[2020-07-03 20:59] LABS: microscopic required? YES; urine erythrocyte NEGATIVE (NEGATIVE)
[2020-07-03 21:32] LABS: PLATELET COUNT 349 x10^3mcL (130-400)
[2020-07-03 21:43] LABS: CALCIUM 9.8 mg/dL (8.5-10.1); CARBON DIOXIDE 27.9 mmol/L (21-32); CHLORIDE SERUM 96 mmol/L (98-107); CREATININE SERUM 0.7 mg/dL (0.6-1.0); GLUCOSE SERUM 116 mg/dL (74-106); POTASSIUM SERUM 3.7 mmol/L (3.5-5.1); SODIUM SERUM 129 mmol/L (136-145)
[2020-07-03 21:48] LABS: ALBUMIN 3.6 g/dL (3.4-5.0); ALKALINE PHOSPHATASE 111 U/L (46-116); ALT/SGPT 34 U/L (14-59); AST/SGOT 18 U/L (15-37); BILIRUBIN TOTAL 0.3 mg/dL (0.20-1.00); TOTAL PROTEIN, SERUM 6.9 g/dL (6.4-8.2)
[2020-07-03 23:07] VITALS: BP 117/54
== END 2020-07-03 23:07 | disposition home or self-care (01) ==
LOC: ED 18:37
PROVIDERS: Emergency Medicine
DX: R41.0 Disorientation, unspecified (principal); N39.0 Urinary tract infection, site not specified; J45.909 Unspecified asthma, uncomplicated; I10 Essential (primary) hypertension; E11.9 Type 2 diabetes mellitus without complications; M81.0 Age-related osteoporosis without current pathological fracture; Z88.0 Allergy status to penicillin; Z86.2 Personal history of diseases of the blood and blood-forming organs and certain disorders involving the immune mechanism